=== PATIENT | male | born 1975 | race Hispanic/Latino ===

== ENCOUNTER 2024-03-09 13:28 | Emergency (ER) | payer OTHER ==
[~2024-03-09] VITALS: Ht 162.6 cm; Wt 84.4 kg
[2024-03-09 13:50] VITALS: PULSE 64; RESP 16; TEMP 98.8; O2SAT 100
== END 2024-03-09 14:15 | disposition home or self-care (01) ==
LOC: ER 14:02
DX: L91.8 Other hypertrophic disorders of the skin (principal); I10 Essential (primary) hypertension
CPT/HCPCS: 99282